=== PATIENT | male | born 1985 | race African-American/Black ===

== ENCOUNTER 2021-05-08 21:44 | Emergency (ER) | payer MEDICAID ==
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
[2021-05-08] MEDS ORDERED: Diphtheria,Pertussis(Acell),Tetanus Vaccine 0.5 ML Syringe IM ONE (22:25)
== END 2021-05-08 22:40 | disposition home or self-care (01) ==
LOC: FB.ED 21:44
DX: S01.01XA Laceration without foreign body of scalp, initial encounter (principal); Z23 Encounter for immunization; W22.8XXA Striking against or struck by other objects, initial encounter
CPT/HCPCS: 12002; 90471; 90715; 99282-25